=== PATIENT | female | born 1975 | race Caucasian/White ===

== ENCOUNTER 2021-04-21 08:07 | Day surgery (SDC) | payer MEDICAID ==
[~2021-04-21] VITALS: Ht 170.2 cm; Wt 79.6 kg
[2021-04-21] VITALS (11 sets, daily range): BP systolic 115–135; BP diastolic 61–93
[~2021-04-21 08:07] MED LIST: ALBU8.5H17 INH; PNV1TABL75 PO; ZOLP10TA5 PO
[2021-04-21] MEDS ORDERED: diphenhydrAMINE 25mg capsule PO PRN (08:40)
[2021-04-21] MEDS ORDERED: normal saline 1,000 ML IV SCH (08:40)
[2021-04-21] MEDS ORDERED: ondansetron 4mg rapidly disintigrating tab PO ONE (08:40)
[2021-04-21] MEDS ORDERED: LACT1CAP65 PO (08:57)
[2021-04-21] MEDS ORDERED: MULT-1085 PO (08:57)
[2021-04-21] MEDS ORDERED: ASPI-1265 PO (08:57)
[2021-04-21] MEDS ORDERED: ICOS1CAP PO (08:57)
[2021-04-21] MEDS ORDERED: NITR0.4T51 SL (08:57)
[2021-04-21] MEDS ORDERED: BACL-11 PO (08:57)
[2021-04-21] MEDS ORDERED: METO-395 PO (09:00)
[2021-04-21] MEDS ORDERED: DOXY25TA58 PO (09:00)
[2021-04-21] MEDS ORDERED: heparin 1,000unit/ml 10ml vial 10 ML ONE (09:17)
[2021-04-21] MEDS ORDERED: fentaNYL/PF 50MCG/1 ML 2ML syringe ONE (09:17)
[2021-04-21] MEDS ORDERED: LIDOcaine 1% (10mg/ml)w/preservative injection 20ml MDV ONE (09:17)
[2021-04-21] MEDS ORDERED: midazolam 1 mg/ML 2ml injection ONE ×3 (09:17→10:28)
[2021-04-21] MEDS ORDERED: iohexol 350MG/ML 100ml bottle IV ONE (09:18)
[2021-04-21] MEDS ORDERED: iohexol 350 MG/ML 50ML vial IV ONE (09:18)
[2021-04-21 09:37] LABS: BASOPHILS % (AUTO) 0.7 % (0-1); EOSINOPHILS # (AUTO) 0.1 X10'3 (0-0.9); EOSINOPHILS % (AUTO) 1.5 % (0-6); HEMATOCRIT 41.9 % (35.0-45.0); HEMOGLOBIN 14.3 g/dl (12.0-16.0); LYMPHOCYTES # (AUTO) 1.9 X10'3 (1.1-4.8); LYMPHOCYTES % (AUTO) 31.1 % (21-51); MEAN CORPUSCULAR HEMOGLOBIN 29.4 PG (27.0-31.0); MEAN CORPUSCULAR VOLUME 86.5 FL (78-98); MEAN PLATELET VOLUME 7.7 FL (7.4-10.4); MONOCYTES # (AUTO) 0.4 X10'3 (0-0.9); MONOCYTES % (AUTO) 6.3 % (2-12); NEUTROPHILS # (AUTO) 3.7 X10'3 (1.8-7.7); NEUTROPHILS % (AUTO) 60.4 % (42-75); PLATELET COUNT 219 X10'3 (140-440); RED BLOOD COUNT 4.85 X10'6 (4.20-5.60); WHITE BLOOD COUNT 6.1 X10'3 (4.5-11.0)
[2021-04-21 09:44] LABS: ALBUMIN 4.1 G/DL (3.4-5.0); ANION GAP 9 (8-16); BLOOD UREA NITROGEN 9 MG/DL (7-18); CALCIUM 8.5 MG/DL (8.5-10.1); CHLORIDE 107 MMOL/L (99-107); CREATININE 0.75 MG/DL (0.40-0.90); GLUCOSE 94 MG/DL (70-104); MAGNESIUM 1.8 MG/DL (1.5-2.4); POTASSIUM 3.9 MMOL/L (3.5-5.1); SODIUM 143 MMOL/L (135-145); TOTAL CARBON DIOXIDE 26.7 MMOL/L (24-32); eGFR 84 ML/MIN
[2021-04-21 09:49] LABS: PARTIAL THROMBOPLASTIN TIME 27 SECONDS (22-32)
[2021-04-21] MEDS ORDERED: ondansetron/PF 4mg/2ml inj IV ONE (10:10)
[2021-04-21] MEDS ORDERED: diphenhydrAMINE 50 mg/ml inj ONE (10:15)
[2021-04-21] MEDS ORDERED: ondansetron/PF 4mg/2ml inj ONE (10:15)
[2021-04-21] MEDS ORDERED: HYDROcodone/acetaminophen 5mg/325mg tablet PO PRN (11:20)
[2021-04-21] MEDS ORDERED: ondansetron/PF 4mg/2ml inj IV PRN (11:20)
[2021-04-21] MEDS ORDERED: proCHLORperazine 10 MG/2 ml inj IV PRN (11:20)
[2021-04-21] MEDS ORDERED: HYDROcodone/acetaminophen 10/325mg tab PO PRN (11:20)
[2021-04-21] MEDS ORDERED: OXAZEpam 15mg capsule PO PRN (11:20)
[2021-04-21] MEDS ORDERED: ketorolac tromethamine 15mg/ml inj. IV ONE (12:15)
== END 2021-04-21 14:00 | disposition home or self-care (01) ==
LOC: SSTAY O 08:07
PROVIDERS: ATTEND Internal Medicine Cardiovascular Disease
DX: R94.31 Abnormal electrocardiogram [ECG] [EKG] (principal); R07.89 Other chest pain; I10 Essential (primary) hypertension; E78.5 Hyperlipidemia, unspecified; E78.1 Pure hyperglyceridemia; D64.9 Anemia, unspecified; G43.909 Migraine, unspecified, not intractable, without status migrainosus; Z79.01 Long term (current) use of anticoagulants; Z88.2 Allergy status to sulfonamides; Z88.8 Allergy status to other drugs, medicaments and biological substances; Z91.018 Allergy to other foods; Z98.51 Tubal ligation status; Z87.440 Personal history of urinary (tract) infections; Z79.82 Long term (current) use of aspirin; Z79.899 Other long term (current) drug therapy; Z87.891 Personal history of nicotine dependence
CPT/HCPCS: 36415; 80048; 83735; 85025; 85730; 93005; 93458; 99152; C1760; C1769; C1894; J1200; J1644; J1885; J2001; J2250; J2405; J3010; J7030; Q9967; A4620; A6258

== ENCOUNTER → 2024-03-26 | Outpatient (CLI) | payer MEDICAID ==
[~2024-03-26] MED LIST changes: +ASPI-1265 PO; +BACL-11 PO; +DOXY25TA58 PO; +ICOS1CAP PO; +LACT1CAP65 PO; +METO-395 PO; +MULT-1085 PO; +NITR0.4T51 SL; -PNV1TABL75 PO; -ZOLP10TA5 PO
== END | disposition home or self-care (01) ==
LOC: MRI 12:33
PROVIDERS: ATTEND Orthopaedic Surgery
DX: M19.011 Primary osteoarthritis, right shoulder (principal); M89.311 Hypertrophy of bone, right shoulder; M25.511 Pain in right shoulder
CPT/HCPCS: 73221